=== PATIENT | female | born 1955 | race Caucasian/White ===

== ENCOUNTER 2020-04-13 23:58 | Observation (INO) | payer OTHER ==
[~2020-04-13] VITALS: Ht 165 cm; Wt 67.0 kg
[2020-04-14 13:23] VITALS: BP 148/106
[2020-04-14] MEDS ORDERED: ANTACID SUSP 30 ML UDC (MYLANTA) PO PRN (13:45)
[2020-04-14] MEDS ORDERED: ACETAMINOPHEN 325 MG TABLET PO PRN (13:45)
[2020-04-14] MEDS ORDERED: polyethylene glycoL POWDER 17 GM (MIRALAX) PACK PO PRN (13:45)
[2020-04-14] MEDS ORDERED: MELATONIN 3 MG TABLET PO PRN (13:45)
[2020-04-14] MEDS ORDERED: ONDANSETRON 4 MG/2 ML (SDV) Z0FRAN IV PRN (13:45)
--- NOTE | 2020-04-14 14:03 | History & Physical-Hospitalist ---
History of Present Illness HPI/Chief Complaint Pt is a 64yoCF with no known PMH who presented to the ER due to chest pain. She states that her symptoms started last night around 730pm at rest. It persisted for roughly 2 hours prompting her to seek evlauation in the ER. She described it as a heaviness across her chest. She has not had any previous history of heart disease or heart problems. She has not seen a doctor and tries to be more holistic in how she cares for her body and adjusts her diet if she has an issue. Upon arrival to the ER though she was given ASA and Nitro which resolved her pain. At this time she does state she has mild chest pain that persists. Towards the end of our conversation she does note she has been under a lot of stress lately and having marital issues. Source: patient Date Seen 04/14/20 Time Seen by a Provider: 14:02 Attending Physician Ansley Carlisle MD PCP No,Local Physician Referring Physician Date of Admission Apr 14, 2020 at 11:55 Home Medications & Allergies Home Medications Reviewed patient Home Medication Reconciliation performed by pharmacy medication reconciliations field service poultry technician and/or nursing. Patients Allergies have been reviewed. Allergies Allergies Coded Allergies No Known Drug Allergies (Imjcmiypol38/4/20) Past [id number]-[id number]-Fqdslw Hx Past Med/Social Hx: Reviewed Nursing Past Med/Soc Hx Patient Social History Marrital Status: Alcohol Use: Denies Use Recreational Drug Use: No Smoking Status: Never a Smoker Physical Abuse Screen: No Sexual Abuse: No Recent Foreign Travel: No Contact w/other who traveled: No Recent Hopitalizations: No Recent Infectious Disease Expo: No Seasonal Allergies Seasonal Allergies: No Past Medical History Psychosocial: Depression History of Blood Disorders: No Review of Systems Constitutional: No chills, No fever EENTM: no symptoms reported Respiratory: No cough, No dyspnea on exertion, No short of breath Cardiovascular: chest pain; No edema, No Hx of Intervention; palpitations Gastrointestinal: No abdominal pain, No constipation, No diarrhea, No nausea, No vomiting Genitourinary: no symptoms reported Musculoskeletal: no symptoms reported Skin: no symptoms reported Psychiatric/Neurological: No Symptoms Reported Physical Exam Physical Exam Vital Signs Vital Signs - First Documented 04/14/20 04/14/20 12:11 13:23 Temp 36.5 Pulse 100 Resp 14 B/P (MAP) 148/106 Pulse Ox 97 O2 Delivery Room Air Capillary Refill : Height, Weight, BMI Height: '" Weight: lbs. oz. kg; 24.60 BMI Method: General Appearance: No Apparent Distress, WD/WN HEENT: PERRL/EOMI, Moist Mucous Membranes Neck: Normal Inspection, Supple; No Thyromegaly Respiratory: Lungs Clear, No Accessory Muscle Use, No Respiratory Distress Cardiovascular: Regular Rate, Rhythm, No JVD, No Murmur Gastrointestinal: Normal Bowel Sounds, Non Tender, Soft Extremity: Normal Capillary Refill, No Calf Tenderness, No Pedal Edema Neurologic/Psychiatric: Alert, Oriented x3, Normal Mood/Affect Results Results/Procedures Labs Patient resulted labs reviewed. Assessment/Plan Admission Diagnosis Chest Pain Admission Status: Observation Assessment and Plan Chest pain Cardiology consulted, appreciate recs Troponin negative x2 at OSH Will repeat Monitor on telemetry phlebotomy services representative consulted, discussed with SW Elevated BP No known diagnosis of HTN Trend DVT ppx: Lovenox Diagnosis/Problems Diagnosis/Problems (1) Chest pain Status: Acute Qualifiers: Chest pain type: other chest pain Qualified Codes: R07.89 - Other chest pain Clinical Quality Measures DVT/VTE Risk/Contraindication: Risk Factor Score Per Nursin RFS Level Per Nursing on Admit: 2=Moderate NEISHA MONTENEGRO MD Apr 14, 2020 14:02
[2020-04-14] MEDS: ENOXAPARIN 40 MG/0.4 ML (LOVENOX) SYR SC SCH (15:01)
--- NOTE | 2020-04-14 15:28 | NUR ---
SPOKE WITH THE PT TO COMPLETE THE MED REC PT DENIES TAKING ANY PRESCRIPTION OR OTC MEDS
[2020-04-14 15:51] VITALS: BP 143/99
[2020-04-14 19:55] VITALS: BP 137/89
[2020-04-15] VITALS: BP 140/90
[2020-04-15 04:00] VITALS: BP 137/80
[2020-04-15 04:11] LABS: HEMOGLOBIN 13.5 g/dL (11.5-16.0); MEAN PLATELET VOLUME 9.5 fL (9.0-12.2)
[2020-04-15 04:38] LABS: POTASSIUM 4.2 MMOL/L (3.6-5.0)
[2020-04-15 04:39] LABS: CALCIUM 9.1 MG/DL (8.5-10.1)
[2020-04-15 04:44] LABS: CREATININE SERUM 1.05 MG/DL (0.60-1.30)
[2020-04-15 07:39] VITALS: BP 149/94
--- NOTE | 2020-04-15 09:55 | Progress Note - Hospitalist ---
Subjective HPI/CC On Admission Date Seen by Provider: Apr 15, 2020 Time Seen by Provider: 09:53 Pt is a 64yoCF with no known PMH who presented to the ER due to chest pain. She states that her symptoms started last night around 730pm at rest. It persisted for roughly 2 hours prompting her to seek evlauation in the ER. She described it as a heaviness across her chest. She has not had any previous history of heart disease or heart problems. She has not seen a doctor and tries to be more holistic in how she cares for her body and adjusts her diet if she has an issue. Upon arrival to the ER though she was given ASA and Nitro which resolved her pain. At this time she does state she has mild chest pain that persists. Towards the end of our conversation she does note she has been under a lot of stress lately and having marital issues. Subjective/Events-last exam Pt reports mild persistent pressure in her chest. Plan is for stress test today. Objective Exam Vital Signs Vital Signs Date Time Temp Pulse Resp B/P (MAP) Pulse Ox O2 Delivery O2 Flow Rate FiO2 04/15/20 09:00 97 Room Air 04/15/20 07:39 35.9 88 18 149/94 (112) Capillary Refill : Less Than 3 Seconds General Appearance: No Apparent Distress, WD/WN Respiratory: Lungs Clear, No Respiratory Distress Cardiovascular: Regular Rate, Rhythm, No Murmur Neurologic/Psychiatric: Alert, Oriented x3 Results/Procedures Lab Laboratory Tests 04/15/20 03:54 Patient resulted labs reviewed. Assessment/Plan Assessment and Plan Assess & Plan/Chief Complaint Chest pain Cardiology consulted, appreciate recs Troponin negative x2 at OSH Will repeat Monitor on telemetry business services clerk consulted, discussed with MAYRA Discussed with Dr Ba, plan for stress and echo today Elevated BP No known diagnosis of HTN Trend DVT ppx: Lovenox Diagnosis/Problems Diagnosis/Problems (1) Chest pain Status: Acute Qualifiers: Chest pain type: other chest pain Qualified Codes: R07.89 - Other chest pain Clinical Quality Measures DVT/VTE Risk/Contraindication: Risk Factor Score Per Nursin RFS Level Per Nursing on Admit: 2=Moderate NEISHA MONTENEGRO MD Apr 15, 2020 09:55
[2020-04-15] MEDS ORDERED: REGADENOSON 0.4 MG/5 ML SYR (LEXISCAN) IV ONE (10:30)
--- NOTE | 2020-04-15 11:37 | NUR ---
CM/SS visited with patient for social service consult. Plan: Patient will return home at time of discharge. Summary: The patient reports that she is doing fine today. CM/SS asked about the patient's stressors and what was causing her stress. She stated that her is her biggest stressor due to the way he handles his finances. She states "he makes us live poor" CM/SS attempted to get clarification if they did not have much financially or if her wouldn't let them spend money. The patient never gave clarification. She just stated " we can't do any repairs around the house because he won't let me". The patient's main concerns are based around the husbands financial budgeting abilities and how he treats her. CM/SS asked if patient would be more comfortable controlling the finances since she was successful in the past. She stated, "well no, because I need him on board with saving". She states that she does not know what to do, because her sam and holiness state they don't allow divorce and she doesn't want to hurt her adult children but is not happy in the relationship. The patient talked at length about her relationship and her holiness/sam. She states they have tried marital counseling through the holiness and that did not help. CM/SS asked if she had been to individual counseling in the past. She stated no. The patient is willing to speak with her holiness and try and find a sam based counselor. CM/SS offered resources for [facility] income. The patient verbalized understanding but stated she is doing fine. This sw listened to patient while she expressed her feelings and emotions. The patient did not have any further questions.
[2020-04-15 12:00] VITALS: BP 159/95
[2020-04-15 16:00] VITALS: BP 151/92
[2020-04-15] MEDS: ENOXAPARIN 40 MG/0.4 ML (LOVENOX) SYR SC SCH (17:27)
--- NOTE | 2020-04-15 18:29 | Consultation-Cardiology ---
HPI-Cardiology Cardiology Consultation: Date of Consultation 04/15/20 Date of Admission Attending Physician Ansley Carlisle MD Admitting Physician No,Local Physician Consulting Physician Susu BA MD [id number] Hx Patient Social History Marrital Status: Alcohol Use: Denies Use Recreational Drug Use: No Smoking Status: Never a Smoker Recent Foreign Travel: No Recent Infectious Disease Expo: No Physical Abuse Screen: No Sexual Abuse: No Past Medical History PMH As described under Assessment. Allergies and Home Medications Allergies Coded Allergies: No Known Drug Allergies (Unverified , 04/14/20) Home Medications No Active Prescriptions or Reported Meds Physical Exam-Cardiology Physical Exam Vital Signs/I&O 04/15/20 04/15/20 04/15/20 04/15/20 06:38 07:39 09:00 12:00 Temp 35.9 36.5 Pulse 92 88 91 Resp 18 20 B/P (MAP) 149/94 (112) 159/95 (116) Pulse Ox 96 97 98 O2 Delivery Room Air Room Air Room Air 04/15/20 12:37 Pulse 93 04/15/20 00:00 Intake Total 200 ml Balance 200 ml Capillary Refill : Less Than 3 Seconds Data Review Labs Laboratory Tests 04/15/20 03:54: White Blood Count 5.0, Red Blood Count 4.65, Hemoglobin 13.5, Hematocrit 42, Mean Corpuscular Volume 90, Mean Corpuscular Hemoglobin 29, Mean Corpuscular Hemoglobin Concent 32, Red Cell Distribution Width 13.2, Platelet Count 210, Mean Platelet Volume 9.5, Sodium Level 146H, Potassium Level 4.2, Chloride Level 110H, Carbon Dioxide Level 24, Anion Gap 12, Blood Urea Nitrogen 16, Creatinine 1.05, Estimat Glomerular Filtration Rate 53, BUN/Creatinine Ratio 15, Glucose Level 108H, Calcium Level 9.1 A/P-Cardiology Plan Thank you for your consultation. Please call me if you have any questions. Zach Ba MD, FACP, FACC, FSCAI, FHRS, CCDS Interventional Cardiology Cardiac Electrophysiology Vascular Medicine and Endovascular Interventions Clinical Quality Measures DVT/VTE Risk/Contraindication: Risk Factor Score Per Nursin RFS Level Per Nursing on Admit: 2=Moderate Susu BA MD Apr 15, 2020 18:29
[2020-04-15 20:00] VITALS: BP 135/72
[2020-04-16] VITALS: BP 116/70
[2020-04-16 04:07] VITALS: BP 118/76
[2020-04-16 08:00] VITALS: BP 145/72
[2020-04-16 11:53] VITALS: BP 150/80
[2020-04-16] MEDS: ENOXAPARIN 40 MG/0.4 ML (LOVENOX) SYR SC SCH (14:49)
--- NOTE | 2020-04-16 15:13 | Discharge Inst-Simple/Standard ---
Discharge Inst-Standard Patient Instructions/Follow Up Plan of Care/Instructions/FU: Please continue to take your medications as written. Please establish care with a primary care doctor to follow up this hospital stay. Activity as Tolerated: Yes Discharge Diet: No Restrictions Return to The Hospital For: Chest pain, shortness of breath, fever, confusion, weakness, if you feel you are getting worse. NEISHA MONTENEGRO MD Apr 16, 2020 15:13
--- NOTE | 2020-04-16 16:10 | Discharge Summary ---
Diagnosis/Chief Complaint Date of Admission Apr 14, 2020 at 11:55 Date of Discharge Discharge Date: Apr 16, 2020 Admission Diagnosis Chest Pain Primary Care No,Local Physician Discharge Diagnosis (1) Chest pain Status: Acute Discharge Summary Procedures/Consulations Cardiology- Dr Ba Discharge Physical Exam Allergies: Coded Allergies: No Known Drug Allergies (Unverified , 04/14/20) Vitals & I&Os Vital Signs Date Time Temp Pulse Resp B/P (MAP) Pulse Ox O2 Delivery O2 Flow Rate FiO2 04/16/20 11:53 36.1 100 16 150/80 (103) 99 Room Air General Appearance: No Apparent Distress, WD/WN Respiratory: Lungs Clear, No Respiratory Distress Cardiovascular: Regular Rate, Rhythm, No Murmur Neurologic/Psychiatric: Alert, Oriented x3 Hospital Course Pt was admitted due to chest pain. She had multiple negative troponins and underwent stress test. She declined administration of any medications so only the exercise stress portion of her testing was done. What could be interpreted was negative but it was still inadequate due to her left BBB. I discussed this with patient who understood risks of not obtaining complete testing recommended. She was discharged home to follow up with cardiology as an outpatient. She was agreeable with this plan. Labs (last 24 hrs) Patient resulted labs reviewed. Discussion & Recommendations Discharge Planning: >30 minutes discharge planning Discharge Home Medications: Active Scripts Active No Active Prescriptions or Reported Medications Instructions to patient/family Please see electronic discharge instructions given to patient. Clinical Quality Measures DVT/VTE Risk/Contraindication: Risk Factor Score Per Nursin RFS Level Per Nursing on Admit: 2=Moderate Problem Qualifiers (1) Chest pain: Chest pain type: other chest pain Qualified Codes: R07.89 - Other chest pain NEISHA MONTENEGRO MD Apr 16, 2020 16:10
--- NOTE | 2020-04-16 20:16 | Cardiology Progress Note ---
Cardiology SOAP Progress Note Objective: I&O/Vital Signs 04/16/20 04/16/20 09:00 11:53 Temp 36.1 Pulse 100 Resp 16 B/P (MAP) 150/80 (103) Pulse Ox 99 O2 Delivery Room Air Room Air 04/16/20 00:00 Intake Total 700 ml Balance 700 ml A/P: Thank you for your consultation. Please call me if you have any questions. Zach Ba MD, FACP, FACC, FSCAI, FHRS, CCDS Interventional Cardiology Cardiac Electrophysiology Vascular Medicine and Endovascular Interventions Susu BA MD Apr 16, 2020 20:16
--- NOTE | 2020-04-20 12:45 | Cardiology Stress Test Report ---
Stress Test Report Date of Procedure/Referring: Date of Procedure: Apr 16, 2020 PCP Ansley Carlisle MD Admitting Physician No,Local Physician Indications: Chest pain Baseline Heart Rate: 80 Baseline Blood Pressure: Blood Pressure Systolic: 150 Blood Pressure Diastolic: 80 Baseline EKG: Baseline EKG: sinus rhythm with left bundle branch block Summary/Conclusion: Summary: In summary, the patient started exercising with a baseline heart rate, blood pressure and EKG mentioned above Patient was able to exercise for a total of [ 5 minutes 30 seconds]minutes on Mark protocol, METs [ ] Maximum heart rate [156 which is 99 percent of maximum predicted heart rate response. ] Maximum blood pressure [179/76 ] Stress EKG, nondiagnostic due to left bundle branch block Conclusion: 1. Stress test with imaging study was recommended. Patient refused injection of radioactive isotope. Therefore regular stress test was done which is nondiagnostic due to presence of baseline left bundle branch block. 2. Good exercise tolerance 2. Nondiagnostic due to left bundle branch block. 3. No arrhythmia was noted Susu CHONG MD Apr 20, 2020 12:45
== END 2020-04-16 17:00 | disposition home or self-care (01) ==
LOC: CSD 04-14 11:55
PROVIDERS: ADMIT Internal Medicine; ATTEND Internal Medicine
DX: R07.89 Other chest pain (principal); F32.9 Major depressive disorder, single episode, unspecified; Z79.899 Other long term (current) drug therapy
CPT/HCPCS: 36415; 80048; 84484; 85027; 93017; 93306; 99211